=== PATIENT | female | born 1980 | race African-American/Black ===

== ENCOUNTER 2019-12-10 17:58 | Emergency (ER) | payer BC ==
[2019-12-10] MEDS ORDERED: MORPHINE SULFATE 4 MG/1ML SYG ONE (19:11)
[2019-12-10] MEDS ORDERED: ONDANSETRON HCL 4 MG/2 ML VIAL ONE (19:11)
[2019-12-10 19:29] LABS: BASOPHILS % (AUTO) 0.4 % (0.0-5.0); EOSINOPHILS % (AUTO) 1.1 % (0.0-8.0); HEMATOCRIT 39.8 % (36-48); MEAN CORPUSCULAR HGB CONC 32.4 g/dL (32.0-36.0); MEAN CORPUSCULAR VOLUME 89.4 fL (79-99); NEUTROPHILS % (AUTO) 66.2 % (40.0-77.0); PLATELET COUNT (AUTO) 242 K/uL (130-400); RED BLOOD CELL COUNT(AUTO) 4.45 MIL/uL (4.00-5.50); RED CELL DISTRIBUTION WIDTH 13.3 % (11.0-15.5); WHITE BLOOD COUNT (AUTO) 11.8 K/uL (4.8-10.8)
[2019-12-10] MEDS ORDERED: LIDOCAINE 1%-EPI 1:100,000 20 ML VIAL IJ ONE (19:36)
[2019-12-10 19:41] LABS: CREATININE 0.8 mg/dL (0.5-1.5); POTASSIUM 4.1 mmol/L (3.5-5.1)
[2019-12-10 19:45] LABS: ALBUMIN 3.4 g/dL (3.5-5.0); BILIRUBIN,TOTAL 0.4 mg/dL (0.2-1.0)
== END 2019-12-10 20:34 | disposition home or self-care (01) ==
LOC: EDH 17:58
DX: L02.412 Cutaneous abscess of left axilla (principal); E11.9 Type 2 diabetes mellitus without complications; Z72.0 Tobacco use
CPT/HCPCS: 10060; 36415; 80053; 85025; 96374; 96375; 99284; J2270; J2405; J3490